=== PATIENT | female | born 1990 | race Caucasian/White ===

== ENCOUNTER 2021-02-13 14:23 | Inpatient (IN) | payer OTHER ==
[2021-02-13 15:14] VITALS: BMI 43.7
[2021-02-13] MEDS ORDERED: hydrALAZINE 20 MG/ML VIAL SLOW IVP PRN ×2 (18:20→19:26)
[2021-02-13 18:43] LABS: Bilirubin Neg (Negative); Blood, Urine Negative (Negative); Clarity Clear (Clear); Glucose, Urine (Dipstick) Normal (Negative); Ketone, Urine Negative (Negative); Leukocyte Negative (Negative); Nitrite Negative (Negative); Protein, Urine (Dipstick) Negative (Neg-Trace); Urobilinogen Normal mg/dL (Less than 2); pH, Urine 6.5 (5.0-9.0)
[2021-02-13 18:52] LABS: Bacteria/HPF Rare-Few HPF (None Seen); RBC/HPF 0-3 HPF (0-3); Squamous Epithelial 0-3 HPF (0-3); WBC/HPF 0-3 HPF (0-3)
[2021-02-13 19:07] LABS: ALT (SGPT) 10 U/L (8-55); AST (SGOT) 13 U/L (5-34); Albumin 3.2 g/dL (3.5-5.0); Alkaline Phosphatase 97 U/L (40-110); Anion Gap 14 mmol/L (10-20); BUN (Urea Nitrogen) 9 mg/dL (7.0-18.7); Bilirubin, Total 0.2 mg/dL (0.2-1.2); Calc. Creatinine Clearance 184 mL/min (70-130); Calcium 9.1 mg/dL (7.8-10.44); Carbon Dioxide 19 mmol/L (22-29); Chloride 107 mmol/L (98-107); Globulin 3.1 g/dL (2.4-3.5); Glucose 73 mg/dL (70-105); Potassium 4.1 mmol/L (3.5-5.1); Protein, Total 6.3 g/dL (6.0-8.3); Sodium 136 mmol/L (136-145); Uric Acid 5.4 mg/dL (2.6-6.0)
[2021-02-13] MEDS ORDERED: Ibuprofen 800 MG TAB PO PRN (19:26)
[2021-02-13] MEDS ORDERED: HYDROcodone/Acetaminophen 5/325 mg Tablet PO PRN (19:26)
[2021-02-13] MEDS ORDERED: Ondansetron PF 4 MG/2 ML Vial IVP PRN (19:26)
[2021-02-13] MEDS ORDERED: Lidocaine 1% (PF) 30 ML VIAL SC PRN (19:26)
[2021-02-13] MEDS ORDERED: NS w/ Oxytocin 30 units 500 ML IV SCH (20:00)
[2021-02-13] MEDS: glyBURIDE 5 MG TAB PO SCH (20:17)
[2021-02-13] MEDS: Misoprostol 100 MCG TAB VAG SCH (22:09)
[2021-02-13] MEDS: Lactated Ringer's 1,000 ML IV SCH (22:09)
[2021-02-13 22:27] LABS: Syphilis Antibody Nonreactive (Nonreactive); Syphilis Antibody Index 0.03 S/CO (<1.00 Non-Reactive)
[2021-02-13 22:28] LABS: Hep B Surf Ag Non-Reactive S/CO (NonReactive)
[2021-02-13 23:04] LABS: HBSAg Index 0.19 S/CO (0-0.99)
[2021-02-13] MEDS ORDERED: Zolpidem Tartrate 5 MG TAB PO PRN (23:13)
[2021-02-13 23:29] LABS: Hemoglobin 11.5 g/dL (12.0-15.5); Mean Corpuscular HGB CONC 31.1 g/dL (32.0-36.0); Mean Corpuscular Hemoglobin 26.1 pg (27.0-33.0); Mean Corpuscular Volume 84.1 fl (81.6-98.3); Mean Platelet Volume 11.7 fl (7.4-10.4); Platelet Count 238 10x3/uL (150-450); RBC Distribution Width 22.1 % (11.5-14.5); White Blood Cell (WBC) Count 13.5 10x3/uL (3.5-10.5)
[2021-02-14 00:39] LABS: SARS-CoV-2 NAA Rapid Test Not Detected (NotDetected)
[2021-02-14] MEDS: Misoprostol 100 MCG TAB VAG SCH ×3 (02:41→09:31)
[2021-02-14] MEDS: Butorphanol Tartrate 1 MG/ML VIAL SLOW IVP PRN ×2 (13:56→15:09)
[2021-02-14] MEDS ORDERED: Fentanyl 2 mcg/Bup 0.1% Cadd 100 ML ONE (16:26)
[2021-02-14] MEDS: Lactated Ringer's 1,000 ML IV SCH (17:26)
[2021-02-14] MEDS ORDERED: Lactated Ringer's 500 ML IV PRN (18:00)
[2021-02-14] MEDS ORDERED: Ondansetron PF 4 MG/2 ML Vial IVP PRN (18:00)
[2021-02-14] MEDS ORDERED: Communication Order-Pharmacy FS SCH (18:00)
[2021-02-14] MEDS ORDERED: Hydrocerin (Eucerin) Cream 120 gm Jar TOP PRN (18:00)
[2021-02-14] MEDS ORDERED: Naloxone HCl 0.4 mg/ml Vial IVP PRN ×2 (18:00)
[2021-02-14] MEDS ORDERED: Acetaminophen 325 MG TAB PO PRN (18:00)
[2021-02-14] MEDS ORDERED: diphenhydrAMINE 50 MG/ML VIAL IVP PRN (18:00)
[2021-02-14] MEDS ORDERED: Fentanyl 2 mcg/Bupivacaine 0.1% Cassette 100 ML EPIDURAL SCH (18:00)
[2021-02-14] MEDS ORDERED: ePHEDrine Sulfate 50 MG/10 ML VIAL SLOW IVP PRN (18:00)
[2021-02-14] MEDS ORDERED: Promethazine HCl 25 MG/ML VIAL IM PRN (18:00)
[2021-02-15] MEDS ORDERED: Bicitra 30 ML UDCUP PO PRN (12:54)
[2021-02-15] MEDS ORDERED: Famotidine/PF 20 mg/2ml Vial SLOW IVP PRN (12:54)
[2021-02-15] MEDS ORDERED: CEFAZOLIN 2 GM in Premix Bag 1 BAG IVPB SCH ×2 (13:00→13:15)
[2021-02-15] MEDS ORDERED: Azithromycin 500 MG in Sodium Chloride 0.9% 250 ML 250 ML IVPB SCH (13:00)
[2021-02-15] MEDS ORDERED: Azithromycin 500 MG VIAL ONE (13:02)
[2021-02-15] MEDS ORDERED: Metoclopramide HCl 10 MG/2 ML VIAL ONE (13:51)
[2021-02-15] MEDS ORDERED: Phenylephrine 40 MG/NS 250 ML 250 ML ONE (13:51)
[2021-02-15] MEDS ORDERED: Ondansetron PF 4 MG/2 ML Vial ONE (13:51)
[2021-02-15] MEDS ORDERED: Oxytocin 10 UNITS/ML VIAL ONE (13:51)
[2021-02-15] MEDS ORDERED: Morphine PF 10 MG/10 ML VIAL ONE (14:07)
[2021-02-15] MEDS ORDERED: Bupivacaine PF 0.5% 30 ML VIAL ONE (14:35)
[2021-02-15] MEDS ORDERED: Ketorolac Tromethamine 30 MG/ML VIAL ONE (14:36)
[2021-02-15] MEDS ORDERED: Carboprost 250 MCG/ML AMP ONE (14:42)
[2021-02-15] MEDS ORDERED: Promethazine HCl 25 MG/ML VIAL IM PRN (17:20)
[2021-02-15] MEDS ORDERED: Ondansetron HCl/PF 4 MG/2 ML Vial IVP PRN (17:20)
[2021-02-15] MEDS ORDERED: diphenhydrAMINE 50 MG/ML VIAL IVP PRN (17:20)
[2021-02-15] MEDS ORDERED: Ketorolac Tromethamine 30 MG/ML VIAL IVP PRN (17:20)
[2021-02-15] MEDS ORDERED: Promethazine HCl 25 MG SUPP PR PRN (17:20)
[2021-02-15] MEDS ORDERED: Fentanyl 100 MCG/2 ML VIAL SLOW IVP PRN (17:20)
[2021-02-15] MEDS ORDERED: Ondansetron PF 4 MG/2 ML Vial IVP PRN ×2 (17:20→18:37)
[2021-02-15] MEDS ORDERED: Naloxone HCl 0.4 mg/ml Vial IVP PRN ×2 (17:20)
[2021-02-15] MEDS ORDERED: Meperidine HCl/PF 25 MG/ML VIAL SLOW IVP PRN (17:20)
[2021-02-15] MEDS ORDERED: Naloxone HCl 0.4 mg/ml Vial IV PRN (17:20)
[2021-02-15] MEDS ORDERED: Hydrocerin (Eucerin) Cream 120 gm Jar TOP PRN (17:20)
[2021-02-15] MEDS ORDERED: Communication Order-Pharmacy FS SCH (17:30)
[2021-02-15] MEDS ORDERED: Ketorolac Tromethamine 30 MG/ML VIAL IVP SCH (17:30)
[2021-02-15] MEDS ORDERED: Fentanyl 100 MCG/2 ML VIAL ONE (17:32)
[2021-02-15] MEDS ORDERED: Simethicone Chewable 80 MG TAB PO PRN (18:37)
[2021-02-15] MEDS ORDERED: hydrALAZINE 20 MG/ML VIAL SLOW IVP PRN (18:37)
[2021-02-15] MEDS ORDERED: Bisacodyl 10 MG SUPP PR PRN (18:37)
[2021-02-15] MEDS ORDERED: Lanolin Ointment 7 GM TUBE TOP PRN (18:37)
[2021-02-15] MEDS ORDERED: NS w/ Oxytocin 30 units 500 ML IV SCH (18:37)
[2021-02-15] MEDS: glyBURIDE 5 MG TAB PO SCH (18:44)
[2021-02-15] MEDS: Misoprostol 100 MCG TAB VAG SCH ×2 (18:46→18:47)
[2021-02-15] MEDS: Lactated Ringer's 1,000 ML IV SCH (18:47)
[2021-02-16 04:29] LABS: Hemoglobin 9.9 g/dL (12.0-15.5); Mean Corpuscular Hemoglobin 26.6 pg (27.0-33.0); Mean Corpuscular Volume 88.7 fl (81.6-98.3); Mean Platelet Volume 11.5 fl (7.4-10.4); Platelet Count 179 10x3/uL (150-450); Red Blood Cell (RBC) Count 3.72 10x6/uL (3.90-5.03); White Blood Cell (WBC) Count 18.3 10x3/uL (3.5-10.5)
[2021-02-16] MEDS: Ferrous Sulfate 325 MG TAB PO SCH ×3 (08:35→23:40)
[2021-02-16] MEDS: Docusate Calcium (SURFAK) 240 MG CAP PO SCH ×3 (08:35→23:40)
[2021-02-16] MEDS: Prenatal Vitamin 1 TAB PO SCH (08:35)
[2021-02-16] MEDS: HYDROcodone/Acetaminophen 5/325 mg Tablet PO PRN ×3 (08:36→15:51)
[2021-02-16] MEDS: Ibuprofen 800 MG TAB PO SCH ×2 (13:57→21:08)
[2021-02-16] MEDS ORDERED: Boostrix 0.5 ML (Tdap) VIAL IM ONE (18:37)
[2021-02-17] MEDS: HYDROcodone/Acetaminophen 5/325 mg Tablet PO PRN ×3 (04:43→14:53)
[2021-02-17] MEDS: Ibuprofen 800 MG TAB PO SCH ×2 (06:04→13:06)
[2021-02-17] MEDS: Ferrous Sulfate 325 MG TAB PO SCH (09:04)
[2021-02-17] MEDS: Prenatal Vitamin 1 TAB PO SCH (09:04)
[2021-02-17] MEDS: Docusate Calcium (SURFAK) 240 MG CAP PO SCH (09:05)
[2021-02-17 11:31] VITALS: BP 136/64; TEMP 99.4
== END 2021-02-17 16:05 | disposition home or self-care (01) | DRG 787 ==
LOC: CSHLD/OP 14:23 → CSHLD 22:56 → CSHPP 02-15 18:15
PROVIDERS: ADMIT Obstetrics & Gynecology; ATTEND Obstetrics & Gynecology
PROC: 10D00Z1 Extraction of Products of Conception, Low, Open Approach (ICD-10-PCS; principal; 2021-02-15)
PROC: 3E033VJ Introduction of Other Hormone into Peripheral Vein, Percutaneous Approach (ICD-10-PCS; 2021-02-15)
PROC: 3E0DXGC Introduction of Other Therapeutic Substance into Mouth and Pharynx, External Approach (ICD-10-PCS; 2021-02-15)
PROC: 3E0P7VZ Introduction of Hormone into Female Reproductive, Via Natural or Artificial Opening (ICD-10-PCS; 2021-02-15)
DX: O14.93 Unspecified pre-eclampsia, third trimester (principal); D62 Acute posthemorrhagic anemia; Z20.822 Contact with and (suspected) exposure to COVID-19; O24.425 Gestational diabetes mellitus in childbirth, controlled by oral hypoglycemic drugs; O62.2 Other uterine inertia; O90.81 Anemia of the puerperium; Z3A.39 39 weeks gestation of pregnancy; Z37.0 Single live birth; O64.0XX0 Obstructed labor due to incomplete rotation of fetal head, not applicable or unspecified
CPT/HCPCS: 36415; 36416; 51702; 80053; 81001; 84550; 85027; 86780; 86850; 86900; 86901; 87340; 99285; J0595; J1885; J2274; J2405; J2590; J2765; J3010; J3490; J7120; S0020; U0002